=== PATIENT | male | born 1960 | race Caucasian/White ===

== ENCOUNTER 2018-04-06 14:56 | Observation (INO) ==
--- NOTE | 2018-04-06 15:13 | Emergency Department Note ---
Disposition Clinical Impression: Tachycardia, Elevated troponin, Thrombocytopenia, Hypokalemia Headache Qualifiers: Headache type: primary stabbing headache Qualified Code(s): G44.85 - Primary stabbing headache Disposition: Admitted As Inpatient Condition: Fair General Adult HPI - General Chief complaint: ED Arrhythmia/Palpitations Stated complaint: Hypertension,High HR Time Seen by Provider: 04/06/18 15:05 Source: patient Mode of arrival: ambulatory Limitations: no limitations Nursing Notes Reviewed: Yes Vital Signs Reviewed: Yes - History of Present Illness HPI Narrative: Patient is a 57-year-old male with history of hyper-tension who presents the emergency department with complaints of diarrhea, lightheadedness, tachycardia and high blood pressure since this morning. He states he had an episode of large-volume watery stool this morning after which she felt lightheaded, slightly short of breath with a headache. He then took his blood pressure which was in the 180s and he was tachycardic to the 150s. He also had several episodes of vomiting and subsequent frequent bowel movements. He states the headache started suddenly and feels like pressure surrounding his head. He has never had a headache this severe before. He states his heart rate prior to this was normal. He denies any chest pain, current shortness of breath, dyspnea on exertion, pain with deep inhalation, fever, chills, visual changes, numbness, t ingling, constipation, abdominal pain, dysuria, hematuria, hematochezia. Pain Scale: 7 - Related Data Home Medications Medication Instructions Recorded Confirmed Acyclovir [Zovirax] 400 mg PO DAILY 04/06/18 04/06/18 Lisinopril-HCTZ 20-12.5 [Prinzide 2 each PO DAILY 04/06/18 04/06/18 20-12.5] Allergies Allergy/AdvReac Type Severity Reaction Status Date / Time No Known Allergies Allergy Verified 04/06/18 15:03 Constitutional: Denies: fever, chills, weakness, weight change Eyes: Denies: eye pain, eye discharge, vision change ENT ED: Denies: ear pain, throat pain, dental pain, hearing loss, epistaxis, congestion, dysphagia Cardiovascular: Denies: chest pain, palpitations, dyspnea on exertion, edema, syncope Respiratory: Denies: cough, dyspnea, wheezes, hemoptysis, stridor Gastrointestinal: Reports: nausea, vomiting, diarrhea. Denies: abdominal pain, constipation, hematemesis, melena, hematochezia Genitourinary: Denies: urgency, dysuria, frequency, hematuria Musculoskeletal: Denies: back pain, neck pain, arthralgia, myalgia Integumentary: Denies: rash, lesions Neurological: Reports: headache. Denies: weakness, numbness, paresthesias, confusion, abnormal gait Psychiatric: Denies: anxiety, depression, suicidal thoughts, homicidal thoughts, auditory hallucinations, visual hallucinations Endocrine: Denies: fatigue Past Medical History - Past Medical History Source: patient Medical history: Reports: hepatitis (C, s/p treatment), hypertension Surgical history: Reports: other (exploratory laparotomy s/p trauma) Physical Exam - General Limitations: no limitations General appearance: alert, in no apparent distress - Head Head exam: atraumatic, normocephalic - Eye Eye exam: Present: normal appearance, PERRL, EOMI. Absent: scleral icterus - ENT ENT exam: normal exam, normal oropharynx, mucous membranes moist - Neck Neck exam: Present: normal inspection, full ROM, trachea midline - Chest Chest inspection: Present: normal inspection, symmetric chest wall rise - Respiratory Respiratory exam: Present: normal lung sounds bilaterally - Cardiovascular Cardiovascular exam: Present: normal rhythm, tachycardia, normal heart sounds. Absent: systolic murmur - Abdominal Exam Abdominal exam: Present: soft, Non-Tender, normal bowel sounds. Absent: distention, guarding, rebound, rigidity - Extremities Exam Extremities exam: Present: normal inspection. Absent: pedal edema - Back Exam Back exam: Present: normal inspection. Absent: CVA tenderness (R), CVA tenderness (L) - Neurological Exam Neurological exam: Present: alert, oriented X3, CN II-XII intact - Expanded Neurological Exam Patient oriented to: Present: person, place, time Speech: Present: fluid speech Cranial nerves: EOM function (II, III, IV, ): Normal, facial sensation (V): Normal, facial palsy (VII): Normal, gag reflex (IX): Normal, spinal accessory function (XI): Normal, tongue deviation (XII): Normal Cerebellar function: finger to nose: Normal, heel to neves: Normal Motor strength - LUE: 5/5 Motor strength - RUE: 5/5 Motor strength - LLE: 5/5 Motor strength - RLE: 5/5 Upper motor neuron exam: sanam neglect: Absent bilaterally Sensory exam upper extremity: light touch: Normal Sensory exam lower extremity: light touch: Normal Coma Scale Eye Opening: Spontaneous Coma Scale Motor Response: Obeys Commands Coma Scale Verbal Response: Oriented Coma Scale Total: 15 - Psychiatric Psychiatric exam: Present: normal affect, normal mood - Skin Skin exam: Present: warm, dry, intact Course Vital Signs Temperature 99.3 F 04/06/18 15:01 Pulse Rate 112 04/06/18 15:01 Respiratory Rate 16 04/06/18 15:01 Blood Pressure 143/96 04/06/18 15:01 O2 Sat by Pulse Oximetry 97 04/06/18 15:01 Temperature 100 F H 04/07/18 01:37 Pulse Rate 78 04/07/18 01:37 Respiratory Rate 18 04/07/18 01:37 Blood Pressure 151/88 04/07/18 01:37 O2 Sat by Pulse Oximetry 97 04/07/18 01:37 Oxygen Delivery Oxygen Delivery Room Air Medical Decision Making - MDM Narrative Medical decision making narrative: 57-year-old male who presents to emergency department with after near syncopal event. Patient had large volume diarrhea and subsequently developed tachycardia, hypertension and lightheadedness. Does also admit sudden onset of headache. Here in the emergency department he does continued to be tachycardic to the 110s and slightly hypertensive. His headache persists. Initial concern for ACS given his ongoing tachycardia though he does deny any chest pain. Also concern for subdural hemorrhage given the sudden onset of his headache. Workup including EKG, chest x-ray and laboratory evaluation initiated. EKG shows sinus tachycardia without evidence of acute ST elevation. Chest x-ray unremarkable. CT head showed no evidence of yet pending is a scratch that was her Mickey acute hemorrhage. Did offer the patient lumbar puncture evaluate for subarach noid hemorrhage but the patient declined this as he states the headache is not severe enough that he believes this is warranted. He does understand that subarachnoid hemorrhage cannot be adequately evaluated for without obtaining CSF. Laboratory workup does show elevated troponin, thromboytopenia and hypokalemia. 40 mEq oral potassium as well as 40 mEq IV potassium given to the patient here in the emergency department. 325 mg aspirin initiated. Discussed the findings with the patient who agrees with plan for admission. Patient agrees with and understands course of treatment plan including plan for admission. All questions answered. - Medical Records Medical records reviewed: Yes I reviewed the patient's medical records. - Lab Data Lab results reviewed: Yes I reviewed the patient's lab results. Result diagrams: 04/06/18 15:54 04/06/18 15:54 Lab Results 04/06/18 04/06/18 04/06/18 Range/Units 15:54 15:54 15:54 WBC 8.9 (4.3-11.1) K/mcL RBC 5.35 (4.19-5.50) M/mcL Hgb 17.2 H (12.9-16.9) g/dL Hct 47.5 (37.5-50.1) % MCV 88.8 (83.0-100.0) fL MCH 32.1 (28.0-33.3) pg MCHC 36.2 H (31.6-35.5) g/dL RDW 13.2 (11.5-14.5) % Plt Count 118 L (140-400) K/mcL MPV 11.2 (9.4-12.4) fL Immature Gran % 1.7 (0-4) % Seg Neutrophils % 87.8 % Lymphocytes % 4.4 % Monocytes % 5.5 % Eosinophils % 0.2 % Basophils % 0.4 % Neutrophils # 7.8 (1.6-8.9) K/mcL Lymphocytes # 0.4 L (0.6-4.6) K/mcL Monocytes # 0.5 (0.0-1.3) K/mcL Eosinophils # 0.0 (0.0-0.6) K/mcL Basophils # 0.0 (0.0-0.2) K/mcL Platelet Estimate Decreased L (Normal) PT 12.4 H (9.4-12.1) Seconds INR 1.1 APTT 37.5 H (26.0-36.0) Seconds Sodium 138 (136-145) mEq/L Potassium 2.9 L (3.5-5.1) mEq/L Chloride 107 (98-107) mEq/L Carbon Dioxide 20 L (23-29) mEq/L BUN 13 (6-20) mg/dL Creatinine 0.88 (0.70-1.30) mg/dL Est GFR ( Amer) > 60 (> 60) Est GFR (Non-Af Amer) > 60 (> 60) BUN/Creatinine Ratio 15 (6-26) Glucose 129 H (70-105) mg/dL Calculated Osmolality 288 (280-300) Calcium 9.0 (8.6-10.3) mg/dL Magnesium 1.6 (1.6-2.6) mg/dL Troponin I 0.04 H* (< 0.04) ng/mL TSH 1.401 (0.340-5.600) mcIU/mL - Radiology Data Radiology results reviewed: Yes I reviewed the patient's radiology results. Chest X-Ray 04/06/18 15:06 IMPRESSION: No acute pulmonary finding. D/ / Jorge Alberto Bennett MD / Jorge Alberto Bennett MD Interpreting Provider: Jorge Alberto Bennett MD Head CT 04/06/18 16:04 IMPRESSION: No acute intracranial abnormality with incidental/chronic findings as described. D/ / Tami Chavez MD / Tami Chavez MD Interpreting Provider: Tami Chavez MD - EKG Data EKG #1 EKG attestation: Yes I reviewed and interpreted this EKG. EKG results narrative: Sinus tachycardia rate of 106. Keep DE 143 QRS 87, QT 343, QTC 456. Normal axis. No evidence of ST elevation. T wave inversions in II, III, AVF, V$, V%, and V6 without evidece of ST elevation or depression. Attestation Statement - Attestation Attestation: I, Mundo Storm, examined this patient and my medical decision-making was reviewed with the CHILD CAREGIVER/PA/Advanced Practice Nurse/Resident Physician. I agree with the documented findings, disposition and treatment plan as described except to the extent set forth below. 57-year-old male presents emergency Department with concerns of nausea, vomiting, diarrhea, elevated blood pressure and palpitations. She also reports that he had a near syncopal event after going to the bathroom and vomiting. No one sick around the house. Patient states his BP was in the 180 systolic earlier today. He took an extra dose of his lisinopril prior to arrival. Systolic blood pressure in the emergency department was 140 on my reevaluation. Patient does not have chest pain or shortness of breath emergency department. Recent trauma. No other changes in his medications. Patient has vomited and had diarrhea multiple times throughout the day. He states he was drinking and eating well yesterday and the day before. Patient has mild elevation of his troponin the emergency department. EKG did not show evidence of STEMI or other acute dysrhythmia. Patient will be admitted to the hospital for further care and evaluation.
[2018-04-06] MEDS ORDERED: 0.9 % Sodium Chloride 1,000 ML IVC ONE (15:58)
[2018-04-06] MEDS ORDERED: Ketorolac 15 MG/ML VIAL IVP ONE (16:00)
[2018-04-06 16:05] LABS: Basophils % 0.4 %; Eosinophils % 0.2 %; Hematocrit 47.5 % (37.5-50.1); Hemoglobin 17.2 g/dL (12.9-16.9); Immature Granulocytes % 1.7 % (0-4); Lymphocytes # 0.4 K/mcL (0.6-4.6); Lymphocytes % 4.4 %; Mean Corpuscular HGB Conc 36.2 g/dL (31.6-35.5); Mean Corpuscular Hemoglobin 32.1 pg (28.0-33.3); Mean Corpuscular Volume 88.8 fL (83.0-100.0); Mean Platelet Volume 11.2 fL (9.4-12.4); Monocytes # 0.5 K/mcL (0.0-1.3); Monocytes % 5.5 %; Neutrophils # 7.8 K/mcL (1.6-8.9); Platelet Count 118 K/mcL (140-400); Red Blood Count 5.35 M/mcL (4.19-5.50); Red Cell Distribution Width 13.2 % (11.5-14.5); Segmented Neutrophils % 87.8 %
[2018-04-06 16:14] LABS: INR 1.1; Prothrombin Time 12.4 Seconds (9.4-12.1)
[2018-04-06 16:16] LABS: Activated Partial Thrombo Time 37.5 Seconds (26.0-36.0)
[2018-04-06 16:27] LABS: BUN/Creatinine Ratio 15 (6-26); Blood Urea Nitrogen 13 mg/dL (6-20); Carbon Dioxide 20 mEq/L (23-29); Chloride 107 mEq/L (98-107); Glucose 129 mg/dL (70-105); Osmolality,Calculated 288 (280-300); Potassium 2.9 mEq/L (3.5-5.1); Sodium 138 mEq/L (136-145); eGFR For Non-African Americans > 60 (> 60)
[2018-04-06 16:30] LABS: Troponin I 0.04 ng/mL (< 0.04)
[2018-04-06 16:40] LABS: Thyroid Stimulating Hormone 1.401 mcIU/mL (0.340-5.600)
[2018-04-06 16:42] LABS: Platelet Estimate Decreased (Normal)
[2018-04-06] MEDS ORDERED: Aspirin 81 MG TAB.CHEW PO ONE (17:05)
[2018-04-06 17:37] LABS: Magnesium 1.6 mg/dL (1.6-2.6)
[2018-04-06] MEDS ORDERED: Naloxone 0.4 MG/ML INJ IVP PRN (18:27)
[2018-04-06] MEDS ORDERED: Acetaminophen 325 MG TABLET PO PRN (18:27)
[2018-04-06] MEDS ORDERED: Ondansetron 4 MG/2 ML VIAL IVP PRN (18:27)
--- NOTE | 2018-04-06 19:05 | Internal Med History&Physical ---
Date of Encounter: 04/06/18 Time of Encounter: 18:00 Internal Medicine - H&P: HPI Chief complaint: Diarrhea, nausea and vomiting Admitted From: Home Plans for Post Hospital Care: Home History of present illness: Mr. Hernandez is a 57 year old male presented to ER for diarrhea, nausea, and vomiting. Past medical history is significant for hypertension, hep C, cirrhosis, genital herpes on by mouth acyclovir. Started from 3:30 AM, patient has watery diarrhea, large amount, no blood in it. Patient feels lightheaded and palpitation. He checked his blood pressure, which is high to 180s and heart rate 157. Patient has a poor appetite and poor intake, with nausea and vomited twice. The vomiting are stomach content, no blood in it. Patient denies fever but feels could. Patient denies recent runny nose. Patient denies chest pain or abdominal pain. He has a mild shortness of breasts after diarrhea. Patient totally has 5 times watery diarrhea and the last diarrhea was around 1 PM today. Patient denies sick contact or recent antibiotic use or recent hospitalization. In the emergency room, he was found heart rate 105, sinus rhythm. Patient has low potassium to 2.9. Troponin 0.04. Patient was admitted for further management. Past Med Surg Social Fam HX - Past Medical History Medical history: hepatitis (C, s/p treatment), hypertension Psychiatric history: no psych history - Past Surgical History Surgical History: other (exploratory laparotomy s/p trauma) Additional surgical history: R hand and L wrist - Social History Smoking Status: Never smoker Alcohol use: none Drug use: none - Family History Mother History Unknown: Yes Internal Medicine - H&P: Meds Acyclovir [Zovirax] 400 mg PO DAILY 04/06/18 [History] Lisinopril-HCTZ 20-12.5 [Prinzide 20-12.5] 2 each PO DAILY 04/06/18 [History] Allergy/AdvReac Type Severity Reaction Status Date / Time No Known Allergies Allergy Verified 04/06/18 15:03 All Systems PM: A 10-system review of systems was performed and is negative for pertinent fi ndings except as documented above in the HPI. - Constitutional Vitals: Temp Pulse Resp BP Pulse Ox 99.9 F H 88 16 168/93 96 04/06/18 18:57 04/06/18 18:57 12/18/18 18:57 04/06/18 18:57 04/06/18 18:57 Exam: Pt is AAO x 3, in NAD HEENT: NC/AT, PERRL Neck: Supple, no JVD, no LAD Lungs: CTA b/l Heart: S1S2, RRR Abd: Soft, nontender, BS present Ext: ROM wnl, no pedal edema Neuro: No focal deficit Internal Med - H&P Results - Labs CBC & Chem 7: 04/06/18 15:54 04/06/18 15:54 Labs: Short CBC 04/06/18 Range/Units 15:54 WBC 8.9 (4.3-11.1) K/mcL Hgb 17.2 H (12.9-16.9) g/dL Hct 47.5 (37.5-50.1) % Plt Count 118 L (140-400) K/mcL Neutrophils # 7.8 (1.6-8.9) K/mcL BMP 04/06/18 15:54 Sodium 138 Potassium 2.9 L Chloride 107 Carbon Dioxide 20 L BUN 13 Creatinine 0.88 Glucose 129 H Calcium 9.0 Cardiac Enzymes 04/06/18 Range/Units 15:54 Troponin I 0.04 H* (< 0.04) ng/mL - Impressions ITS Impressions Chest X-Ray 04/06/18 15:06 IMPRESSION: No acute pulmonary finding. D/ / Jorge Alberto Bennett MD / Jorge Alberto Bennett MD Interpreting Provider: Jorge Alberto Bennett MD Head CT 04/06/18 16:04 IMPRESSION: No acute intracranial abnormality with incidental/chronic findings as described. D/ / Tami Chavez MD / Tami Chavez MD Interpreting Provider: Tami Chavez MD - Assessment and plan (1) Acute gastroenteritis Current Visit: Yes Status: Acute Assessment and plan: Patient has acute onset diarrhea with nausea and vomiting. No fever, no leukocytosis. Denies abdominal pain. Abdominal EXAM is benign without tenderness/rebound/guarding. Bowel sounds present. - Consider acute gastroenteritis, probably viral. - Continue supportive treatment and closely monitor patient. (2) Hypokalemia Current Visit: Yes Status: Acute Assessment and plan: Most likely due to acute gastroenteritis. Will give by mouth and IV supplement (3) Dehydration Current Visit: Yes Status: Acute Assessment and plan: Due to gastroenteritis. Continue IV fluid. Patient has improved appetite right now. Start full liquid diet and encourage by mouth hydration (4) Elevated troponin Current Visit: Yes Status: Acute Assessment and plan: Patient denies chest pain. EKG shows III, AVF and V5, V6 ST T changes which most likely due to hypokalemia. Mild elevated troponin most likely due to demand ischemia. - Place patient on continuous cardiac monitoring - Track 3 sets of troponin - Repeat EKG in a.m. (5) Hypertension Current Visit: Yes Status: Acute Assessment and plan: Continue home medications Qualifiers: Hypertension type: essential hypertension Qualified Code(s): I10 - Essential (primary) hypertension (6) Hepatitis C Current Visit: Yes Status: Acute Assessment and plan: Patient is following up with liver specialist as outpatient and finish hep C antivirus treatment. Continue follow-up as outpatient Qualifiers: Viral hepatitis chronicity: chronic Hepatic coma status: without hepatic coma Qualified Code(s): B18.2 - Chronic viral hepatitis C (7) DVT prophylaxis Current Visit: Yes Status: Acute Assessment and plan: Patient is expected to be discharged soon. Patient is ambulating well. No anticoagulation is placed - Time Spent With Patient Total time spent is greater than 50% in coordination of care (as documented) at patient's floor/unit and/or counseling patient: 40 minutes Greater than 35 minutes
[2018-04-06] MEDS: Ringers Solution, Lactated 1,000 ML IVC SCH (20:06)
[2018-04-07 05:04] LABS: Red Cell Distribution Width 13.2 % (11.5-14.5)
[2018-04-07 05:06] LABS: Basophils % 0.4 %; Eosinophils # 0.1 K/mcL (0.0-0.6); Hematocrit 39.6 % (37.5-50.1); Hemoglobin 14.4 g/dL (12.9-16.9); Immature Granulocytes % 0.2 % (0-4); Immature Platelets 5.4 % (1.1-6.1); Lymphocytes # 0.7 K/mcL (0.6-4.6); Lymphocytes % 13.5 %; Mean Corpuscular HGB Conc 36.4 g/dL (31.6-35.5); Mean Corpuscular Hemoglobin 32.7 pg (28.0-33.3); Mean Corpuscular Volume 89.8 fL (83.0-100.0); Mean Platelet Volume 11.6 fL (9.4-12.4); Monocytes # 0.4 K/mcL (0.0-1.3); Monocytes % 8.4 %; Red Blood Count 4.41 M/mcL (4.19-5.50); Segmented Neutrophils % 76.5 %
[2018-04-07 05:13] LABS: Platelet Count 89 K/mcL (140-400)
[2018-04-07 05:24] LABS: Troponin I 0.03 ng/mL (< 0.04)
[2018-04-07 05:25] LABS: BUN/Creatinine Ratio 12 (6-26); Blood Urea Nitrogen 10 mg/dL (6-20); Carbon Dioxide 23 mEq/L (23-29); Chloride 110 mEq/L (98-107); Glucose 115 mg/dL (70-105); Magnesium 1.7 mg/dL (1.6-2.6); Osmolality,Calculated 288 (280-300); Potassium 3.1 mEq/L (3.5-5.1); Sodium 139 mEq/L (136-145); eGFR For Non-African Americans > 60 (> 60)
[2018-04-07] MEDS: Ringers Solution, Lactated 1,000 ML IVC SCH (05:50)
[2018-04-07] MEDS ORDERED: Potassium Chloride 20 MEQ, Lidocaine 1% 2 ML in D5% in Water 250 ML IVPB ONE (07:42)
--- NOTE | 2018-04-07 08:15 | Internal Med Progress Note ---
Addendum entered and electronically signed by Raciel Ji 04/08/18 13:10: Original Note: <Raciel Ji - Last Filed: 04/07/18 11:50> Hospitalist Progress Note - Encounter Date of Encounter: 04/07/18 Time of Encounter: 11:51 - Subjective Interval History: 57 YO M here for diarrhea, nausea, and vomitting with history of hep C cirrhosis, genetial herpes on mouth on acyclovir. Patient states that he is still having voluminous bowel movements x3. Denies having abdominal pain, CP, palpitations, SOB. He is comfortable and reports no acute events overnight. - Vitals: 1:37 today had a 100F temp which returned to normal at 4:17. BP Stable at 142/81 which is his baseline for this visit. - Potassium improved 2.9 to 3.1 today. Currently receiving 20 meq KCL which will be done in an hour. Will recheck BNP in afternoon. - Trops are downtrending 0.4, 0.4, 0.3 - Stool panel today - if negative for C.diff we will give him imodium and possibly d/c. - DVT PPX: 5000 heparin sq - Exam Vitals: Temp Pulse Resp BP Pulse Ox 98.5 F 67 17 142/81 98 04/07/18 07:22 04/07/18 07:22 04/07/18 07:22 04/07/18 07:22 04/07/18 07:22 Exam: Head: normocephalic atraumatic Chest: CTAB no wheezes appreciated Heart: RRR +S1 and S2 Abdomen: distended, nontender, normal bowel sounds Extremities: radial pulses palpated - Assessment and Plan (1) Acute gastroenteritis Status: Acute Assessment and Plan: Patient has acute onset diarrhea with nausea and vomiting. No fever, no leukocytosis. Denies abdominal pain. Abdominal EXAM is benign without tenderness/rebound/guarding. Bowel sounds present. - Consider acute gastroenteritis, probably viral. - Continue supportive treatment and closely monitor patient. - Patient had 3 voliminous bowel movements today (2) Hypokalemia Status: Acute Assessment and Plan: Trend K+, BMP ordered for afternoon. (3) Dehydration Status: Acute Assessment and Plan: Lactate ringers. Imodium if no cdiff. (4) Elevated troponin Status: Acute Assessment and Plan: Patient denies chest pain. Tropnins downtreding 0.4, 0.4, 0.3. No further intervention indicated. (5) Hypertension Status: Acute Assessment and Plan: Continue home medications (6) Hepatitis C Status: Acute Assessment and Plan: Follow up with outpatient GI specialist (7) DVT prophylaxis Status: Acute - Time Spent with Patient Total time spent is greater than 50% in coordination of care (as documented) at patient's floor/unit and/or counseling patient: Internal Medicine: Result - Labs CBC & Chem 7: 04/07/18 04:48 04/07/18 04:48 Labs: Short CBC 04/06/18 04/07/18 Range/Units 15:54 04:48 WBC 8.9 5.2 (4.3-11.1) K/mcL Hgb 17.2 H 14.4 D (12.9-16.9) g/dL Hct 47.5 39.6 (37.5-50.1) % Plt Count 118 L 89 L (140-400) K/mcL Neutrophils # 7.8 4.0 (1.6-8.9) K/mcL BMP 04/06/18 04/07/18 15:54 04:48 Sodium 138 139 Potassium 2.9 L 3.1 L Chloride 107 110 H Carbon Dioxide 20 L 23 BUN 13 10 Creatinine 0.88 0.85 Glucose 129 H 115 H Calcium 9.0 8.0 L Cardiac Enzymes 04/06/18 04/06/18 04/07/18 Range/Units 15:54 21:53 04:48 Troponin I 0.04 H* 0.04 H* 0.03 (< 0.04) ng/mL - ABG Interpretation ABG results: PT/INR, D-dimer PT 12.4 Seconds (9.4-12.1) H 04/06/18 15:54 - Impressions Impressions Chest X-Ray 04/06/18 15:06 IMPRESSION: No acute pulmonary finding. D/ / Jorge Alberto Bennett MD / Jorge Alberto Bennett MD Interpreting Provider: Jorge Alberto Bennett MD Head CT 04/06/18 16:04 IMPRESSION: No acute intracranial abnormality with incidental/chronic findings as described. D/ / Tami Chavez MD / Tami Chavez MD Interpreting Provider: Tami Chavez MD Consult Discharge Plan - Plan Instructions: Ciprofloxacin (By mouth), Loperamide (By mouth) Referrals: Mickey Blair MD [Primary Care Provider] - (Office is closed on Wednesdays and .Voice mail left so office should call you with and appointment date and time. If you do not hear from them on Thursday please call and schedule an appointment 5-7 days out.) Prescriptions: RX: Loperamide [Imodium] 2 mg PO Q4HR 5 Days #30 capsule Ciprofloxacin [Cipro] 500 mg PO BID 3 Days #6 tablet RX: Potassium Chloride 20 meq PO DAILY #5 tab.er.prt <Tavo Woody - Last Filed: 04/07/18 18:02> Hospitalist Progress Note - Encounter Date of Encounter: 04/07/18 - Exam Vitals: Temp Pulse Resp BP Pulse Ox 99.0 F 63 19 148/94 96 04/07/18 11:15 04/07/18 11:15 04/07/18 11:15 04/07/18 11:15 04/07/18 11:15 - Assessment and Plan (1) Acute gastroenteritis Status: Acute (2) Hypokalemia Status: Resolved (3) Dehydration Status: Resolved (4) Elevated troponin Status: Resolved (5) Hypertension Status: Resolved (6) Hepatitis C Status: Chronic (7) DVT prophylaxis Status: Acute - Time Spent with Patient Total time spent is greater than 50% in coordination of care (as documented) at patient's floor/unit and/or counseling patient: Internal Medicine: Result - Labs CBC & Chem 7: 04/07/18 04:48 04/07/18 13:33 Labs: Short CBC 04/07/18 Range/Units 04:48 WBC 5.2 (4.3-11.1) K/mcL Hgb 14.4 D (12.9-16.9) g/dL Hct 39.6 (37.5-50.1) % Plt Count 89 L (140-400) K/mcL Neutrophils # 4.0 (1.6-8.9) K/mcL BMP 04/07/18 04/07/18 04:48 13:33 Sodium 139 139 Potassium 3.1 L 3.4 L Chloride 110 H 109 H Carbon Dioxide 23 25 BUN 10 8 Creatinine 0.85 0.87 Glucose 115 H 157 H Calcium 8.0 L 8.5 L Cardiac Enzymes 04/06/18 04/07/18 Range/Units 21:53 04:48 Troponin I 0.04 H* 0.03 (< 0.04) ng/mL - ABG Interpretation ABG results: PT/INR, D-dimer PT 12.4 Seconds (9.4-12.1) H 04/06/18 15:54 - Attending Attestation I have seen and examined this patient independently. I have discussed with resident physician Dr Ji regarding the management plan. Agree with the docume ntation. <Raciel Ji - Last Filed: 04/07/18 11:50> (5) Hypertension Qualifiers: Hypertension type: essential hypertension Qualified Code(s): I10 - Essential (primary) hypertension (6) Hepatitis C Qualifiers: Viral hepatitis chronicity: chronic Hepatic coma status: without hepatic coma Qualified Code(s): B18.2 - Chronic viral hepatitis C <Tavo Woody - Last Filed: 04/07/18 18:02> (5) Hypertension Qualifiers: Hypertension type: essential hypertension Qualified Code(s): I10 - Essential (primary) hypertension (6) Hepatitis C Qualifiers: Viral hepatitis chronicity: chronic Hepatic coma status: without hepatic coma Qualified Code(s): B18.2 - Chronic viral hepatitis C
[2018-04-07] MEDS ORDERED: Acyclovir 200 MG CAPSULE PO SCH (09:00)
[2018-04-07] MEDS ORDERED: Lisinopril-HCTZ 20-12.5mg TABLET PO SCH (09:00)
[2018-04-07 11:16] VITALS: BP 148/94
[2018-04-07 12:52] LABS: C.difficile Toxin A/B Gene PCR Not detected (Not detect); Campylobacter by PCR Not detected (Not detect); Enteroaggregative E.coli(EAEC) DETECTED (Not detect); Enteropathogenic E.coli(EPEC) Not detected (Not detect); Enterotoxigenic E.coli (ETEC) Not detected (Not detect); Plesiomonas shigelloides PCR Not detected (Not detect); Salmonella PCR Not detected (Not detect); Shigalike tox-prod E coli STEC Not detected (Not detect); Vibrio PCR Not detected (Not detect); Vibrio cholerae PCR Not detected (Not detect); Yersinia enterocolitica PCR Not detected (Not detect)
[2018-04-07 12:53] LABS: Adenovirus F 40/41 PCR Not detected (Not detect); Astrovirus PCR Not detected (Not detect); Cryptosporidium by PCR Not detected (Not detect); Cyclospora cayetanensis PCR Not detected (Not detect); E. coli O157 by PCR Not detected (Not detect); Entamoeba histolytica PCR Not detected (Not detect); Giardia lamblia PCR Not detected (Not detect); Norovirus GI/GII PCR Not detected (Not detect); Rotavirus A PCR Not detected (Not detect); Sapovirus PCR DETECTED (Not detect); Shig/EnteroinvasiveE coli EIEC Not detected (Not detect)
[2018-04-07 14:13] LABS: BUN/Creatinine Ratio 9 (6-26); Blood Urea Nitrogen 8 mg/dL (6-20); Calcium 8.5 mg/dL (8.6-10.3); Carbon Dioxide 25 mEq/L (23-29); Chloride 109 mEq/L (98-107); Glucose 157 mg/dL (70-105); Osmolality,Calculated 290 (280-300); Potassium 3.4 mEq/L (3.5-5.1); Sodium 139 mEq/L (136-145); eGFR For Non-African Americans > 60 (> 60)
--- NOTE | 2018-04-07 14:35 | Discharge Summary ---
<Jez Haynes - Last Filed: 04/07/18 14:29> - NOTES TO OUTPATIENT PROVIDER Notes to Outpatient Provider: Patient admitted for acute gastroenteritis secondary to sapovirus versus Escherichia coli. Treated with IV fluids. Will be discharged on loperamide, ciprofloxacin, and potassium. Orders not resulted at time of discharge: Pending orders 04/07/18 06:00 EKG [ECG 12 lead ECG] [ECG] AM 0600 04/07/18 11:03 GI Panel,Stool [MOLMIC] Routine Date of Encounter: 04/07/18 Time of Encounter: 14:29 - Discharge Diagnosis (1) Acute gastroenteritis Priority: Primary Status: Acute (2) Hypokalemia Priority: Secondary Status: Resolved (3) Dehydration Priority: Secondary Status: Resolved (4) Elevated troponin Priority: Secondary Status: Resolved (5) Hypertension Priority: Secondary Status: Resolved Qualifiers: Hypertension type: essential hypertension Qualified Code(s): I10 - Essential (primary) hypertension (6) Hepatitis C Priority: Secondary Status: Chronic Qualifiers: Viral hepatitis chronicity: chronic Hepatic coma status: without hepatic coma Qualified Code(s): B18.2 - Chronic viral hepatitis C (7) DVT prophylaxis Priority: Secondary Status: Acute Hospital course: Mr. Hernandez is a 57 year old male presented with acute onset of watery diarrhea along with abdominal pain, vomiting. denies hematochezia, melena, hematemesis. Patient was found to be severely dehydrated, tachycardic with heart rate 180s, and hemoglobin of 17. [place] Denied anybody in the family with similar symptoms. He denied recent antibiotic use or hospitalization. He was started on IV fluids and also had potassium replaced due to hypokalemia. Patient also had elevated troponin of 0.04, 0.04, 0.03. He denied chest pain. EKG was negative for ischemic changes. TSH was within normal limits. Stool panel was positive for EAEC and jorge virus. This morning patient was able to tolerate by mouth intake and morning diet. His diarrhea frequency decreased. Today he has only had 2 bouts of diarrhea. Patient will be discharged with ciprofloxacin 3 days, loperamide and potassium replacement. He will follow-up with his PCP. - Time Spent with Patient Total time spent providing and/or coordinating discharge services: - Discharge Medications Prescriptions: RX: Loperamide [Imodium] 2 mg PO Q4HR 5 Days #30 capsule Ciprofloxacin [Cipro] 500 mg PO BID 3 Days #6 tablet RX: Potassium Chloride 20 meq PO DAILY #5 tab.er.prt Home Medications: RX: Acyclovir [Zovirax] 400 mg PO DAILY 04/06/18 [History] RX: Lisinopril-HCTZ 20-12.5 [Prinzide 20-12.5] 2 each PO DAILY 04/06/18 [History] Ciprofloxacin [Cipro] 500 mg PO BID 3 Days #6 tablet 04/07/18 [Rx] RX: Loperamide [Imodium] 2 mg PO Q4HR 5 Days #30 capsule 04/07/18 [Rx] RX: Potassium Chloride 20 meq PO DAILY #5 tab.er.prt 04/07/18 [Rx] Allergies/Adverse Reactions: Allergy/AdvReac Type Severity Reaction Status Date / Time No Known Allergies Allergy Verified 04/06/18 15:03 Date of admission: 04/06/18 17:39 Primary care physician: Mickey Blair MD Discharging clinician: Jez Haynes Anticipated date of discharge: 04/07/18 - Constitutional Vitals: Temp Pulse Resp BP Pulse Ox 99.0 F 63 19 148/94 96 04/07/18 11:15 04/07/18 11:15 04/07/18 11:15 04/07/18 11:15 04/07/18 11:15 Exam: General: pleasant, without distress HEENT: Head atraumatic, normocephalic, EOMI, PERRL, absent ear discharge or trauma, Moist Mucous Membranes, uvula midline Neck: nontender to palpation, absent lymphadenopathy, Cardiovascualr: Regular rate and rhythm with no murmur, absent gallops or rubs, absent pedal edema, radial pulses 2 out of 4 Lungs: Clear to auscultation bilaterally, not in respiratory distress Abdomen: Soft nontender, nondistended positive bowel sounds, absent hepatomegaly Skin: warm and dry, absent rash, absent open wounds and nodules MSK: absent clubbing, cyanosis, joints without swelling Neuro: Cranial nerves II through XII intact, UE and LE sensation equal bilaterally, UE and LEstrength 5/5, alert oriented 3, Psych: good insight and judgment, - Patient Status Disposition: Home, Self-Care Condition: Fair Functional capacity at discharge: independent ambulation Overall status at discharge: patient is progressing back to baseline - Discharge Instructions Instructions: Ciprofloxacin (By mouth), Loperamide (By mouth) Follow Up With: Mickey Blair MD [Primary Care Provider] - (Office is closed on Wednesdays and .Voice mail left so office should call you with and appointment date and time. If you do not hear from them on Thursday please call and schedule an appointment 5-7 days out.) - Diet and Activity Activity: increase activity as tolerated Diet: advance to your usual diet <Tavo Woody - Last Filed: 04/07/18 14:58> Orders not resulted at time of discharge: Pending orders 04/07/18 06:00 EKG [ECG 12 lead ECG] [ECG] AM 0600 04/07/18 11:03 GI Panel,Stool [MOLMIC] Routine Date of Encounter: 04/07/18 - Discharge Diagnosis (1) Acute gastroenteritis Status: Acute (2) Hypokalemia Status: Resolved (3) Dehydration Status: Resolved (4) Elevated troponin Status: Resolved (5) Hypertension Status: Resolved Qualifiers: Hypertension type: essential hypertension Qualified Code(s): I10 - Essential (primary) hypertension (6) Hepatitis C Status: Chronic Qualifiers: Viral hepatitis chronicity: chronic Hepatic coma status: without hepatic coma Qualified Code(s): B18.2 - Chronic viral hepatitis C (7) DVT prophylaxis Status: Acute Hospital course: Mr. Hernandez is a 57 year old male - Time Spent with Patient Total time spent providing and/or coordinating discharge services: Date of admission: 04/06/18 17:39 Primary care physician: Mickey Blair MD - Constitutional Vitals: Temp Pulse Resp BP Pulse Ox 99.0 F 63 19 148/94 96 04/07/18 11:15 04/07/18 11:15 04/07/18 11:15 04/07/18 11:15 04/07/18 11:15 - Attending Attestation I have seen and examined this patient independently. I have discussed with resident physician Dr Haynes regarding the discharge and follow up plan. Agree with the documentation.
--- NOTE | 2018-04-09 12:42 | Electrocardiograph Report ---
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
--- NOTE | 2018-04-09 17:56 | Electrocardiograph Report ---
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
== END 2018-04-07 16:29 | disposition home or self-care (01) ==
LOC: EMEROOARM 14:56 → 2ANU 14:56
PROVIDERS: ADMIT Student in an Organized Health Care Education/Training Program; ATTEND Student in an Organized Health Care Education/Training Program